=== PATIENT | female | born 1990 | race Caucasian/White ===

== ENCOUNTER → 2024-11-21 06:18 | Day surgery (SDC) | payer OTHER, SELFPAY | END | disposition home or self-care (01) | LOC: GI 06:18 | PROVIDERS: ATTENDING PHYSICIAN Surgery | DX: K62.5 Hemorrhage of anus and rectum (principal); Z53.09 Procedure and treatment not carried out because of other contraindication | CPT/HCPCS: 45378; G0378 ==

== ENCOUNTER 2025-01-16 06:29 | Day surgery (SDC) | payer OTHER, SELFPAY | END 2025-01-16 09:08 | disposition home or self-care (01) | LOC: GI 06:29 | PROVIDERS: ATTENDING PHYSICIAN Surgery | DX: R19.5 Other fecal abnormalities (principal); Q43.8 Other specified congenital malformations of intestine | CPT/HCPCS: 45378 ==